=== PATIENT | male | born 1950 | race African-American/Black ===

== ENCOUNTER 2018-10-12 12:01 | Inpatient (IN) | payer MEDICARE, OTHER ==
[~2018-10-12] VITALS: Ht 175.3 cm; Wt 94.0 kg
[2018-10-12] VITALS (7 sets, daily range): BP systolic 147–168; BP diastolic 74–91
[2018-10-12] MEDS ORDERED: HEPARIN SODIUM 1,000 UNIT/1ML VIAL IV ONE (14:52)
[2018-10-12] MEDS ORDERED: INSU300I SQ ×2 (15:01)
[2018-10-12] MEDS ORDERED: SEMA1PEN SQ (15:01)
[2018-10-12] MEDS ORDERED: BC POWDER PO (15:01)
[2018-10-12] MEDS ORDERED: NICARDIPINE 100MCG/ML 10ML VIAL (CATH LAB) IV ONE (15:16)
[2018-10-12] MEDS ORDERED: NITROGLYCERIN 50MCG/ML 10ML VIAL (CATH LAB) IV ONE (15:16)
[2018-10-12] MEDS ORDERED: LIDOCAINE HCL 1% 20ML VIAL (Pyxis) INJ ONE (15:22)
[2018-10-12] MEDS ORDERED: IODIXANOL 320MG/ML 100 ML BOTTLE IV ONE ×2 (15:22→16:45)
[2018-10-12] MEDS ORDERED: MIDAZOLAM HCL 2 MG/2 ML VIAL ONE (15:54)
[2018-10-12] MEDS ORDERED: FENTANYL CITRATE/PF 50MCG/ML 2ML VIAL ONE (15:54)
[2018-10-12] MEDS ORDERED: IOHEXOL-300 100 ML BOTTLE ONE (16:32)
[2018-10-12] MEDS ORDERED: ASPIRIN 325MG TABLET ONE (17:06)
[2018-10-12] MEDS ORDERED: CLOPIDOGREL 75MG TABLET ONE (17:07)
[2018-10-12] MEDS ORDERED: ATROPINE SULFATE 1MG/10ML SYR IV PRN (17:15)
[2018-10-12] MEDS ORDERED: ONDANSETRON HCL 4MG/2ML INJ IV PRN (17:15)
[2018-10-12] MEDS ORDERED: ACETAMINOPHEN 325MG TABLET PO PRN (17:15)
[2018-10-12] MEDS ORDERED: INFLUENZA VIRUS VACCINE(AFLURIA) 0.5ML SYR IM ONE (18:15)
[2018-10-12] MEDS ORDERED: PNEUMOCOCCAL 23-VAL P-SAC VAC 0.5 ML IM ONE (18:15)
[2018-10-12] MEDS ORDERED: DEXTROSE 50% WATER 50ML SYRINGE IV PRN (18:45)
[2018-10-12] MEDS: INSULIN LISPRO 100 UNITS/ML SUBCUT SCH (21:00)
[2018-10-12] MEDS: BLOOD SUGAR DIAGNOSTIC STRIP TEST SCH (21:14)
[2018-10-13] VITALS (7 sets, daily range): BP systolic 117–159; BP diastolic 76–95
[2018-10-13] MEDS: INSULIN LISPRO 100 UNITS/ML SUBCUT SCH (06:32)
[2018-10-13] MEDS: BLOOD SUGAR DIAGNOSTIC STRIP TEST SCH (06:32)
[2018-10-13 08:20] LABS: BASOPHILS % 0.5 % (0.0-2.0); EOSINOPHILS % 2.5 % (0.0-5.0); HEMATOCRIT. 45.9 % (42.0-52.0); HEMOGLOBIN. 15.4 g/dL (14.0-18.0); LYMPHOCYTES % 22.1 % (20.0-50.0); MEAN CORPUSCULAR HEMOGLOBIN 29.5 pg (28.0-32.0); MEAN CORPUSCULAR VOLUME 87.9 fL (80.0-94.0); MEAN PLATELET VOLUME 9.6 fl (7.4-10.4); MONOCYTES % 14.5 % (2.0-8.0); NEUTROPHILS % 60.4 % (40.0-76.0); PLATELET 202 x1000/uL (130-400); RED BLOOD CELL COUNT 5.23 mill/uL (4.7-6.1); RED CELL DISTRIBUTION WIDTH 13.8 % (11.6-14.6)
[2018-10-13 08:30] LABS: CHLORIDE 101 mEq/L (98-107)
[2018-10-13] MEDS ORDERED: CLOPIDOGREL 75MG TABLET PO SCH (09:00)
[2018-10-13] MEDS ORDERED: ASPIRIN 325MG TABLET PO SCH (09:00)
== END 2018-10-13 10:45 | disposition home or self-care (01) | DRG 247 ==
LOC: CCL 12:01 → 3WST 12:02
PROVIDERS: ADMIT Specialist; ATTEND Specialist
PROC: 4A023N7 Measurement of Cardiac Sampling and Pressure, Left Heart, Percutaneous Approach (ICD-10-PCS; principal; 2018-10-12)
PROC: 027034Z Dilation of Coronary Artery, One Artery with Drug-eluting Intraluminal Device, Percutaneous Approach (ICD-10-PCS; 2018-10-12)
PROC: B2111ZZ Fluoroscopy of Multiple Coronary Arteries using Low Osmolar Contrast (ICD-10-PCS; 2018-10-12)
PROC: B2151ZZ Fluoroscopy of Left Heart using Low Osmolar Contrast (ICD-10-PCS; 2018-10-12)
DX: I25.10 Atherosclerotic heart disease of native coronary artery without angina pectoris (principal); E11.51 Type 2 diabetes mellitus with diabetic peripheral angiopathy without gangrene; E78.5 Hyperlipidemia, unspecified; I11.9 Hypertensive heart disease without heart failure; I70.208 Unspecified atherosclerosis of native arteries of extremities, other extremity; Z79.4 Long term (current) use of insulin
CPT/HCPCS: 36415; 80048; 82962; 85347; 90686; 90732; 92928; 93458; C1725; C1760; C1769; C1874; C1887; C1893; J1644; J2250; J3010; J3490; Q9967

== ENCOUNTER 2025-05-09 06:27 | Inpatient (IN) | payer MEDICARE, OTHER ==
[~2025-05-09] VITALS: Ht 175.3 cm; Wt 89.2 kg
[~2025-05-09 06:27] MED LIST: INSU300I SQ; SEMA1PEN SQ
[2025-05-09] MEDS ORDERED: EMPA25TA PO (07:05)
[2025-05-09] MEDS ORDERED: EVOL140P3 SQ (07:05)
[2025-05-09] MEDS ORDERED: INSU100V36 SQ (07:05)
[2025-05-09] MEDS ORDERED: IODIXANOL 320MG/ML 100 ML BOTTLE IV ONE ×2 (08:42→09:25)
[2025-05-09] MEDS ORDERED: HEPARIN 1000 UNITS/ML 10ML ONE ×2 (08:42→10:08)
[2025-05-09] MEDS ORDERED: LIDOCAINE HCL 1% 20ML VIAL ONE (08:42)
[2025-05-09] MEDS ORDERED: MIDAZOLAM HCL 2 MG/2 ML VIAL ONE (08:47)
[2025-05-09] MEDS ORDERED: FENTANYL CITRATE/PF 50MCG/ML 2ML VIAL ONE (08:47)
[2025-05-09] MEDS ORDERED: EPINEPHRINE 0.1MG/ML (1:10,000) 10ML SYR ONE (09:23)
[2025-05-09] MEDS ORDERED: ATROPINE SULFATE 1MG/10ML SYR ONE (09:25)
[2025-05-09] MEDS ORDERED: ASPIRIN 325MG TABLET ONE (11:01)
[2025-05-09] MEDS ORDERED: CLOPIDOGREL 75MG TABLET ONE (11:01)
[2025-05-09] MEDS ORDERED: ONDANSETRON HCL 4MG/2ML INJ IV PRN ×2 (11:15→12:30)
[2025-05-09] MEDS ORDERED: ATROPINE SULFATE 1MG/10ML SYR IV PRN (11:15)
[2025-05-09 11:38] VITALS: BP 152/86; PULSE 85; RESP 14; TEMP 36.4; O2SAT 99
[2025-05-09 11:40] VITALS: BP 152/86; PULSE 85; RESP 14; TEMP 36.4736
[2025-05-09] MEDS: ACETAMINOPHEN 325MG TABLET PO PRN (11:58)
[2025-05-09] MEDS ORDERED: ASPI-1497 PO (12:00)
[2025-05-09] MEDS ORDERED: DEXTROSE 50% WATER 50ML SYRINGE IV PRN (12:30)
[2025-05-09] MEDS: PANTOPRAZOLE SODIUM 40 MG/VIAL IV SCH (13:27)
[2025-05-09 16:00] VITALS: BP 146/84; PULSE 80; RESP 18; TEMP 36.7; O2SAT 98
[2025-05-09] MEDS: BLOOD SUGAR DIAGNOSTIC STRIP TEST SCH (16:14)
[2025-05-09] MEDS: INSULIN LISPRO 100 UNITS/ML SUBCUT SCH (16:25)
[2025-05-09] MEDS ORDERED: [UNRECOGNIZED DRUG - REMARK] XX SCH (19:15)
[2025-05-09 20:00] VITALS: BP 123/82; PULSE 85; RESP 14; TEMP 36.7; O2SAT 96
[2025-05-10] VITALS: BP 123/75; PULSE 75; RESP 15; TEMP 36.8; O2SAT 96
[2025-05-10 04:00] VITALS: BP 129/76; PULSE 79; RESP 18; TEMP 36.9; O2SAT 95
[2025-05-10] MEDS: MORPHINE SULFATE 2 MG/ML INJ (NOT FOR IM USE) IV SCH (04:15)
[2025-05-10] MEDS ORDERED: HYDROCODONE/ACETAMINOPHEN 5/325MG TABLET PO PRN (04:15)
[2025-05-10] MEDS ORDERED: NALOXONE HCL 0.4MG/ML VIAL IV PRN (04:15)
[2025-05-10 06:58] LABS: BASOPHILS % 0.4 % (0.0-2.0); EOSINOPHILS % 4.7 % (0.0-5.0); HEMATOCRIT. 45.1 % (42.0-52.0); HEMOGLOBIN. 15.3 g/dL (14.0-18.0); LYMPHOCYTES % 19.2 % (20.0-50.0); MEAN PLATELET VOLUME 9.9 fl (7.4-10.4); MONOCYTES % 14.4 % (2.0-8.0); NEUTROPHILS % 61.3 % (40.0-76.0); PLATELET 209 x1000/uL (130-400); RED BLOOD CELL COUNT 5.10 mill/uL (4.7-6.1); RED CELL DISTRIBUTION WIDTH 14.1 % (11.6-14.6)
[2025-05-10 07:10] LABS: CREATININE 1.0 mg/dL (0.6-1.3); UREA NITROGEN BLOOD 10 mg/dL (9-23)
[2025-05-10 08:00] VITALS: BP 129/75; RESP 14; TEMP 36.2; O2SAT 92
[2025-05-10] MEDS ORDERED: ASPIRIN 325MG TABLET PO SCH (09:00)
[2025-05-10] MEDS: CLOPIDOGREL 75MG TABLET PO SCH (09:06)
[2025-05-10] MEDS: ASPIRIN 81MG TABLET PO SCH (09:06)
[2025-05-10] MEDS: EMPAGLIFLOZIN 25MG TABLET PO SCH (09:06)
[2025-05-10] MEDS: PANTOPRAZOLE SODIUM 40 MG/VIAL IV SCH (09:06)
[2025-05-10 11:06] VITALS: BP 131/83; PULSE 81; RESP 14; TEMP 98.4
[2025-05-10 11:22] VITALS: BP 131/83; PULSE 76; RESP 20; TEMP 97.7
== END 2025-05-10 12:28 | disposition home or self-care (01) | DRG 322 ==
LOC: CCL 06:27 → 3WST 06:28
PROVIDERS: ADMIT Specialist; ATTEND Specialist
PROC: 027135Z Dilation of Coronary Artery, Two Arteries with Two Drug-eluting Intraluminal Devices, Percutaneous Approach (ICD-10-PCS; principal; 2025-05-09)
PROC: 4A023N7 Measurement of Cardiac Sampling and Pressure, Left Heart, Percutaneous Approach (ICD-10-PCS; 2025-05-09)
PROC: B211YZZ Fluoroscopy of Multiple Coronary Arteries using Other Contrast (ICD-10-PCS; 2025-05-09)
DX: I25.10 Atherosclerotic heart disease of native coronary artery without angina pectoris (principal); E11.22 Type 2 diabetes mellitus with diabetic chronic kidney disease; E78.5 Hyperlipidemia, unspecified; I12.9 Hypertensive chronic kidney disease with stage 1 through stage 4 chronic kidney disease, or unspecified chronic kidney disease; N18.9 Chronic kidney disease, unspecified; Z79.4 Long term (current) use of insulin; Z79.82 Long term (current) use of aspirin; Z79.84 Long term (current) use of oral hypoglycemic drugs
CPT/HCPCS: 36415; 80048; 82962; 85025; 85347; 92928; 92929; 93005; 93458; C1725; C1769; C1874; C1887; C1893; J0461; J1644; J1815; J2003; J2250; J2270; J2470; J3010; J3490; Q9967